=== PATIENT | female | born 1975 | race African-American/Black ===

== ENCOUNTER 2016-07-20 14:37 | Observation (INO) | payer OTHER ==
[~2016-07-20] VITALS: Ht 167.6 cm; Wt 130.8 kg
--- NOTE | ~2016-07-20 | EKG ---
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
[~2016-07-20 14:37] MED LIST: BACTRIM DS TAB1 EACH PO; DIFLUCAN150 M1 PO; GLUCOPHAGE XR500 MG PO; HYDROCHLOROTHIA25 M2 GT; HYDROCHLOROTHIA25 M2 PO; JANUMET 50-5001 EACH PO; LABETALOL HCL200 MG PO; LANTUS100 UNIT/M SUBQ; LASIX 40 MG TAB40 MG GT; LOPRESSOR25 PO; METOPROLOL TART25 MG PO; MONISTAT 11 EACH VG; NOHOMEMEDICATIONS; NORCO 5-325 TA1 EACH PO; NORVASC10 MG PO; POTASSIUM20 PO; PRINIVIL20 MG PO; PRINIVIL40 MG PO; TRAMADOL 50 MG50 MG PO; VICTOZA0.6 MG/0.1 SUBQ; VITAMIN D32000 UNIT PO; ZOFRAN ODT4 MG PO
[2016-07-20 14:38] VITALS: BP 178/108
[2016-07-20] MEDS ORDERED: AMLODIPINE BESY10 MG PO (14:42)
[2016-07-20 15:05] LABS: ABSOLUTE NEUTROPHILS 3.2 thou/uL (1.4-8.2); BASOPHILS 0.9 % (0.0-2.0); EOSINOPHILS 2.8 % (0.0-3.0); HEMATOCRIT 37.3 % (37.0-47.0); HEMOGLOBIN 12.5 gm/dL (12.0-15.0); MCH 28.4 pg (26.0-34.0); MCHC 33.6 % (28.0-37.0); MCV 84.4 fL (80.0-100.0); MONOCYTES 11.4 % (1.0-8.0); PLATELET COUNT 269 thou/uL (150-400); POLYS 46.9 % (36.0-66.0); RBC 4.42 mil/uL (4.20-5.00); RDW 16.5 % (10.5-14.5); WBC 6.9 thou/uL (4.0-11.0)
[2016-07-20 15:06] LABS: MANUAL DIFF NO
[2016-07-20 15:13] LABS: CALCIUM 9.4 mg/dL (8.5-10.1); CREATININE 0.9 mg/dL (0.6-1.3); POTASSIUM 3.4 mmol/L (3.5-5.1)
[2016-07-20 15:19] LABS: ALBUMIN 3.3 g/dL (3.4-5.0); TOTAL BILIRUBIN 0.2 mg/dL (<0.1-1.0); TOTAL PROTEIN 8.1 g/dL (6.4-8.2); URIC ACID* 4.8 mg/dL (2.6-7.2)
[2016-07-20 15:27] LABS: URINE BILIRUBIN NEGATIVE (Negative); URINE BLOOD TRACE (Negative); URINE COLOR YELLOW; URINE GLUCOSE-RANDOM* NEGATIVE (Negative); URINE KETONES NEGATIVE (Negative); URINE LEUKOCYTES-REFLEX NEGATIVE (Negative); URINE PROTEIN (DIPSTICK) 2+ (Negative); URINE SPECIFIC GRAVITY >= 1.030 (1.003-1.035); URINE UROBILINOGEN 0.2 E.U./dl (0.2-1.0)
[2016-07-20 15:42] LABS: SQUAMOUS >10 Many /LPF (0-3)
[2016-07-20 15:43] LABS: CASTS None Seen /LPF (None Seen); CRYSTALS None Seen /LPF (None Seen); URINE RBC None Seen /HPF (0-2); URINE WBC-REFLEX 0-5 Rare /HPF (0-5)
[2016-07-20 18:29] VITALS: BP 165/89
[2016-07-20] MEDS ORDERED: IRON325 PO (19:43)
[2016-07-20] MEDS ORDERED: LASIX 40 MG TAB40 M2 PO (19:44)
[2016-07-20 21:02] VITALS: BP 146/80
[2016-07-20] MEDS ORDERED: ACCUNEB SO1.25 MG/1 INH (22:29)
[2016-07-20] MEDS ORDERED: FLONASE 0.05%50 MCG NASAL (22:31)
[2016-07-20] MEDS ORDERED: ALBUTEROL2.5 MG/0.5 INH (22:32)
[2016-07-20] MEDS ORDERED: COZAAR 25 MG TA25 M2 PO (22:34)
[2016-07-20] MEDS ORDERED: LEVAQUIN 500 M500 M2 PO (22:35)
[2016-07-20] MEDS ORDERED: PREDNISOLONE 5 M5 M1 PO (22:38)
[2016-07-20] MEDS ORDERED: TRAMADOL 50 MG50 MG PO (22:39)
[2016-07-20] MEDS ORDERED: ADVAIR HFA 230M12 GM INH (22:41)
[2016-07-20 23:44] VITALS: BP 157/105
[2016-07-21] VITALS (8 sets, daily range): BP systolic 122–186; BP diastolic 87–120
[2016-07-21 03:52] LABS: CALCIUM 8.6 mg/dL (8.5-10.1); CREATININE 0.7 mg/dL (0.6-1.3); POTASSIUM 3.5 mmol/L (3.5-5.1)
[2016-07-21] MEDS ORDERED: NIFEDIPINE ER60 M1 PO (09:31)
== END 2016-07-21 15:17 | disposition home or self-care (01) ==
LOC: ER 14:37 → EROBS 16:45 → 2N 19:29
PROVIDERS: Emergency Medicine; Nurse Practitioner
DX: R51 Headache (principal); I10 Essential (primary) hypertension; E11.9 Type 2 diabetes mellitus without complications; J06.9 Acute upper respiratory infection, unspecified; Z79.899 Other long term (current) drug therapy; F17.210 Nicotine dependence, cigarettes, uncomplicated

== ENCOUNTER → 2016-10-05 | Outpatient (CLI) | payer OTHER ==
[~2016-10-05] MED LIST changes: +ACCUNEB SO1.25 MG/1 INH; +ADVAIR HFA 230M12 GM INH; +ALBUTEROL2.5 MG/0.5 INH; +AMLODIPINE BESY10 MG PO; +COZAAR 25 MG TA25 M2 PO; +FLONASE 0.05%50 MCG NASAL; +IRON325 PO; +LASIX 40 MG TAB40 M2 PO; +LEVAQUIN 500 M500 M2 PO; +NIFEDIPINE ER60 M1 PO; +PREDNISOLONE 5 M5 M1 PO
== END ==
LOC: RAD 02:58
DX: R05 Cough (principal)

== ENCOUNTER 2018-05-20 23:29 | Emergency (ER) | payer OTHER ==
[~2018-05-20] VITALS: Ht 170.2 cm; Wt 131.1 kg
[~2018-05-20 23:29] MED LIST changes: +HYDROCHLOROTHIA25 M1 PO; +JANUVIA100 MG PO; +LISINOPRIL20 MG PO
[2018-05-20] MEDS ORDERED: LOPRESSOR50 PO (23:54)
[2018-05-20] MEDS ORDERED: TRULICITY1.5 MG/0.5 (23:54)
[2018-05-21] MEDS ORDERED: ALEVE220 MG PO (00:59)
[2018-05-21 01:26] VITALS: BP 191/101
== END 2018-05-21 01:27 | disposition home or self-care (01) ==
LOC: ER 23:29
DX: M25.561 Pain in right knee (principal); F17.210 Nicotine dependence, cigarettes, uncomplicated; I10 Essential (primary) hypertension; E11.9 Type 2 diabetes mellitus without complications; E28.2 Polycystic ovarian syndrome; Z98.890 Other specified postprocedural states

== ENCOUNTER 2018-06-13 19:23 | Emergency (ER) | payer OTHER ==
[~2018-06-13] VITALS: Ht 167.6 cm; Wt 133.4 kg
[~2018-06-13 19:23] MED LIST changes: +ALEVE220 MG PO; +LOPRESSOR50 PO; +TRULICITY1.5 MG/0.5
[2018-06-13] MEDS ORDERED: LISINOPRIL5 MG PO (19:49)
[2018-06-13] MEDS ORDERED: NORCO 5-325 TA1 EACH PO (20:35)
[2018-06-13 20:48] VITALS: BP 193/101
== END 2018-06-13 20:48 | disposition home or self-care (01) ==
LOC: ER 19:23
DX: S83.8X1A Sprain of other specified parts of right knee, initial encounter (principal); S93.491A Sprain of other ligament of right ankle, initial encounter; F17.210 Nicotine dependence, cigarettes, uncomplicated; I10 Essential (primary) hypertension; E11.9 Type 2 diabetes mellitus without complications; E28.2 Polycystic ovarian syndrome; Z98.890 Other specified postprocedural states; X50.1XXA Overexertion from prolonged static or awkward postures, initial encounter; Y92.89 Other specified places as the place of occurrence of the external cause; Y93.89 Activity, other specified; Y99.8 Other external cause status

== ENCOUNTER 2018-08-21 21:57 | Emergency (ER) | payer OTHER ==
[~2018-08-21] VITALS: Ht 167.6 cm; Wt 135.2 kg
[~2018-08-21 21:57] MED LIST changes: +LISINOPRIL5 MG PO
[2018-08-21] MEDS ORDERED: AMLODIPINE BESY10 MG PO (22:05)
[2018-08-21] MEDS ORDERED: ATIVAN1 MG PO (22:06)
[2018-08-21] MEDS ORDERED: ESCITALOPRAM OX10 MG PO (22:06)
[2018-08-21 22:57] LABS: BASOPHILS 0.8 % (0.0-2.0); EOSINOPHILS 2.9 % (0.0-3.0); HEMOGLOBIN 13.8 gm/dL (12.0-15.0); LYMPHOCYTES 32.3 % (24.0-44.0); MCH 29.6 pg (26.0-34.0); MCHC 34.5 g/dL (28.0-37.0); MCV 85.8 fL (80.0-100.0); MONOCYTES 9.8 % (1.0-8.0); PLATELET COUNT 200 thou/uL (150-400); POLYS 54.2 % (36.0-66.0); RBC 4.66 mil/uL (4.20-5.00); RDW 14.5 % (10.5-14.5); WBC 7.4 thou/uL (4.0-11.0)
[2018-08-21 23:03] LABS: CALCIUM 9.4 mg/dL (8.5-10.1); CREATININE 1.1 mg/dL (0.6-1.0)
[2018-08-21 23:09] LABS: ALBUMIN 3.5 g/dL (3.4-5.0); TOTAL BILIRUBIN 0.3 mg/dL (<0.1-1.0); TOTAL PROTEIN 7.9 g/dL (6.4-8.2)
[2018-08-22] MEDS ORDERED: AZITHROMYCIN 2250 MG PO (00:03)
[2018-08-22] MEDS ORDERED: POTASSIUM20 PO (00:03)
[2018-08-22 00:13] VITALS: BP 184/100
== END 2018-08-22 00:13 | disposition home or self-care (01) ==
LOC: ER 21:57
PROVIDERS: Emergency Medicine
DX: J11.1 Influenza due to unidentified influenza virus with other respiratory manifestations (principal); E87.6 Hypokalemia; I10 Essential (primary) hypertension; E11.9 Type 2 diabetes mellitus without complications; F17.210 Nicotine dependence, cigarettes, uncomplicated; Z98.890 Other specified postprocedural states

== ENCOUNTER 2018-09-11 21:38 | Emergency (ER) | payer OTHER ==
[~2018-09-11] VITALS: Ht 167.6 cm; Wt 137.4 kg
[~2018-09-11 21:38] MED LIST changes: +ATIVAN1 MG PO; +AZITHROMYCIN 2250 MG PO; +ESCITALOPRAM OX10 MG PO
[2018-09-11] MEDS ORDERED: BYSTOLIC 5 MG5 MG PO (21:56)
[2018-09-11 23:46] LABS: ABSOLUTE NEUTROPHILS 6.7 thou/uL (1.4-8.2); BASOPHILS 0.9 % (0.0-2.0); EOSINOPHILS 2.7 % (0.0-3.0); HEMOGLOBIN 12.9 gm/dL (12.0-15.0); LYMPHOCYTES 36.5 % (24.0-44.0); MCH 28.9 pg (26.0-34.0); MCV 87.6 fL (80.0-100.0); MONOCYTES 5.9 % (1.0-8.0); PLATELET COUNT 231 thou/uL (150-400); RBC 4.45 mil/uL (4.20-5.00); RDW 14.6 % (10.5-14.5); WBC 12.3 thou/uL (4.0-11.0)
[2018-09-11 23:48] LABS: CALCIUM 9.2 mg/dL (8.5-10.1); POTASSIUM 3.5 mmol/L (3.5-5.1)
[2018-09-11 23:54] LABS: ALBUMIN 3.3 g/dL (3.4-5.0); TOTAL BILIRUBIN 0.3 mg/dL (<0.1-1.0); TOTAL PROTEIN 7.5 g/dL (6.4-8.2)
[2018-09-12] VITALS: BP 173/93
[2018-09-12] MEDS ORDERED: ZOFRAN ODT4 MG DISSOLVE (00:37)
[2018-09-12] MEDS ORDERED: NAPROSYN500 MG PO (00:37)
[2018-09-12] MEDS ORDERED: NORCO 5-325 TA1 EACH PO (00:37)
== END 2018-09-12 01:09 | disposition home or self-care (01) ==
LOC: ER 21:38
PROVIDERS: Emergency Medicine
DX: M17.12 Unilateral primary osteoarthritis, left knee (principal); E11.9 Type 2 diabetes mellitus without complications; M25.462 Effusion, left knee; R11.2 Nausea with vomiting, unspecified; R19.7 Diarrhea, unspecified; I10 Essential (primary) hypertension; E28.2 Polycystic ovarian syndrome; F17.210 Nicotine dependence, cigarettes, uncomplicated; Z98.890 Other specified postprocedural states

== ENCOUNTER 2018-09-15 15:58 | Emergency (ER) | payer OTHER ==
[~2018-09-15] VITALS: Ht 167.6 cm; Wt 138.8 kg
[~2018-09-15 15:58] MED LIST changes: +BYSTOLIC 5 MG5 MG PO; +NAPROSYN500 MG PO; +ZOFRAN ODT4 MG DISSOLVE
[2018-09-15 18:12] VITALS: BP 169/81
== END 2018-09-15 18:19 | disposition home or self-care (01) ==
LOC: ER 15:58
DX: M71.22 Synovial cyst of popliteal space [Baker], left knee (principal); M25.462 Effusion, left knee; I10 Essential (primary) hypertension; E11.9 Type 2 diabetes mellitus without complications; Z98.890 Other specified postprocedural states

== ENCOUNTER 2018-11-17 16:10 | Inpatient (IN) | payer OTHER ==
[~2018-11-17] VITALS: Ht 167.6 cm; Wt 142.0 kg
[2018-11-17] VITALS (7 sets, daily range): BP systolic 132–211; BP diastolic 73–112
[2018-11-17 16:32] LABS: URINE BILIRUBIN NEGATIVE (Negative); URINE BLOOD NEGATIVE (Negative); URINE CLARITY CLEAR; URINE COLOR YELLOW; URINE GLUCOSE-RANDOM* 2+ (Negative); URINE KETONES TRACE (Negative); URINE LEUKOCYTES NEGATIVE (Negative); URINE NITRITE NEGATIVE (Negative); URINE PROTEIN (DIPSTICK) 1+ (Negative); URINE UROBILINOGEN 0.2 E.U./dl (0.2-1.0)
[2018-11-17 16:41] LABS: SQUAMOUS >10 Many /LPF (0-3); URINE RBC 0-2 Rare /HPF (0-2); URINE WBC 0-5 Rare /HPF (0-5)
[2018-11-17 16:42] LABS: BACTERIA 1-9 Few /HPF (None Seen); CASTS None Seen /LPF (None Seen); CRYSTALS None Seen /LPF (None Seen)
[2018-11-17 17:03] LABS: EOSINOPHILS 0.7 % (0.0-3.0); HEMATOCRIT 41.1 % (37.0-47.0); HEMOGLOBIN 13.7 gm/dL (12.0-15.0); LYMPHOCYTES 30.5 % (24.0-44.0); MCH 29.2 pg (26.0-34.0); MCHC 33.3 g/dL (28.0-37.0); MCV 87.7 fL (80.0-100.0); MONOCYTES 4.5 % (1.0-8.0); PLATELET COUNT 209 thou/uL (150-400); POLYS 63.3 % (36.0-66.0); RBC 4.69 mil/uL (4.20-5.00); RDW 15.3 % (10.5-14.5); WBC 9.5 thou/uL (4.0-11.0)
[2018-11-17 17:11] LABS: ANION GAP 6 mmol/L (7-16); BUN 15 mg/dL (7-18); CALCIUM 9.4 mg/dL (8.5-10.1); CHLORIDE 99 mmol/L (98-107); CO2 29 mmol/L (21-32); CREATININE 1.1 mg/dL (0.6-1.0); GLUCOSE 323 mg/dL (74-106); POTASSIUM 3.6 mmol/L (3.5-5.1); SODIUM 134 mmol/L (136-145)
[2018-11-17 17:19] LABS: TROPONIN-I <0.06 ng/mL (<0.06)
[2018-11-17 17:21] LABS: AMP/METHAMP Negative (Negative); BARBITURATES POSITIVE (Negative); BENZODIAZEPINES Negative (Negative); COCAINE Negative (Negative); METHADONE Negative (Negative); OPIATES Negative (Negative); PCP Negative (Negative)
[2018-11-18] VITALS (12 sets, daily range): BP systolic 129–176; BP diastolic 65–91
[2018-11-18 05:21] LABS: HEMATOCRIT 41.7 % (37.0-47.0); HEMOGLOBIN 13.7 gm/dL (12.0-15.0); MCV 88.1 fL (80.0-100.0); RBC 4.73 mil/uL (4.20-5.00); RDW 15.4 % (10.5-14.5); WBC 8.6 thou/uL (4.0-11.0)
[2018-11-18 05:33] LABS: CREATININE 0.9 mg/dL (0.6-1.0)
[2018-11-18 05:38] LABS: POTASSIUM 3.9 mmol/L (3.5-5.1)
--- NOTE | 2018-11-18 05:56 | NUR ---
PT. ARRIVED AT FLOOR AROUND 1930; AOX4; C/O HEADACHE; PRN PAIN MEDICATION GIVEN; SBP 164; PT. ON NICARDIPINE GTT AT 5MG/H; ABLE TO AMBULATE WITHOUT AIDS; THROUGH THE NIGHT IV GTT TITRATED ACCORDING TO SBP; AT 0400 PT. 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 REQUESTED C-PAP OFF; EDUCATED ABOUT THE IMPORTANCE OF WEARING IT; ST. UNDERSTANDING; ABLE TO REST THROUGH THE NIGHT WITH EYES CLOSED; ASSESSMENT CHARGED; FOLLOWING POC; WILL KEEP MONITORING; WILL PASS ON REPORT.
--- NOTE | 2018-11-18 10:29 | EKG ---
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: : 1975 Requested By: Ivana Hannah Order Number: [id number] MD: Osman Molina Measurements Intervals [place] Rate: 97 P: 47 NV: 158 QRS: 32 QRSD: 84 T: 143 QT: 384 QTc: 488 Interpretive Statements Sinus rhythm Poor R wave progression Nonspecific ST and T wave abnormality Compared to ECG 07/20/2016 14:54:16 Poor R wave progression is now present Electronically Signed On 11-18-2018 10:28:52 CDT by Osman Molina [email or web address] ��������������������������������������������� <ELECTRONICALLY SIGNED> ���������������������������������������� By: Osman Molina MD, [facility] ��������������������������������������������� 11/18/18 1028 1654 1654 Osman Molina MD, [facility] /EPI
[2018-11-18] MEDS ORDERED: BENICAR40 MG PO (15:28)
[2018-11-18] MEDS ORDERED: BYSTOLIC20 MG PO (15:28)
[2018-11-18] MEDS ORDERED: GLYBURIDE 5 MG T5 M1 PO (15:29)
[2018-11-18] MEDS ORDERED: METFORMIN HCL500 MG PO (15:29)
--- NOTE | 2018-11-18 16:38 | NUR ---
ASSUMED CARE AT SHIFT CHANGE, ALERT AND ORIENTED X4. C/O HEADACHE WHIC REOLVED WHEN PATIENT TOOL A NAP. BP 141/84 DR CHRISTINA NOTIFIED. DENIES ANY CP AFEBRILE AND SR ON THE MONITOR. DISCHARGE AND MEDICATION INSTRUCTIONS GIVEN, AND PATIENT VERBALIZED UNDERSTANDING. AND SHE IS DISCHARGING HOME.
== END 2018-11-18 17:45 | disposition home or self-care (01) | DRG 305 ==
LOC: ER 16:10 → EROBS 17:50 → 2N 18:29
PROVIDERS: Student in an Organized Health Care Education/Training Program; ADMIT Hospitalist
DX: I16.1 Hypertensive emergency (principal); Z68.43 Body mass index [BMI] 50.0-59.9, adult; I10 Essential (primary) hypertension; E11.65 Type 2 diabetes mellitus with hyperglycemia; E66.01 Morbid (severe) obesity due to excess calories; G47.33 Obstructive sleep apnea (adult) (pediatric); R20.2 Paresthesia of skin; F17.210 Nicotine dependence, cigarettes, uncomplicated; Z98.891 History of uterine scar from previous surgery; Z79.899 Other long term (current) drug therapy; Z91.040 Latex allergy status
CPT/HCPCS: 10194

== ENCOUNTER 2019-04-29 18:55 | Emergency (ER) | payer OTHER ==
[~2019-04-29] VITALS: Ht 170.2 cm; Wt 137.4 kg
[~2019-04-29 18:55] MED LIST changes: +BENICAR40 MG PO; +BYSTOLIC20 MG PO; +GLYBURIDE 5 MG T5 M1 PO; +METFORMIN HCL500 MG PO
[2019-04-29] MEDS ORDERED: TRANDATE 200 M200 M1 PO (19:11)
[2019-04-29] MEDS ORDERED: FLEXERIL PO (19:11)
[2019-04-29] MEDS ORDERED: CHLORTHALIDONE25 MG PO (19:12)
[2019-04-29] MEDS ORDERED: JARDIANCE10 MG PO (19:13)
[2019-04-29] MEDS ORDERED: LIPITOR 40 MG T40 M1 PO (19:13)
[2019-04-29] MEDS ORDERED: GLYBURIDE 5 MG T5 M1 PO (19:13)
[2019-04-29] MEDS ORDERED: MOBIC15 MG PO (19:40)
[2019-04-29 20:05] VITALS: BP 138/68
== END 2019-04-29 20:05 | disposition home or self-care (01) ==
LOC: ER 18:55
DX: G56.03 Carpal tunnel syndrome, bilateral upper limbs (principal); M70.842 Other soft tissue disorders related to use, overuse and pressure, left hand; M70.841 Other soft tissue disorders related to use, overuse and pressure, right hand; I10 Essential (primary) hypertension; E11.9 Type 2 diabetes mellitus without complications; E28.2 Polycystic ovarian syndrome; F17.210 Nicotine dependence, cigarettes, uncomplicated; Z98.890 Other specified postprocedural states; Z91.040 Latex allergy status; Y93.89 Activity, other specified

== ENCOUNTER 2019-06-28 22:40 | Emergency (ER) | payer OTHER ==
[~2019-06-28] VITALS: Ht 170.2 cm; Wt 131.1 kg
[~2019-06-28 22:40] MED LIST changes: +CHLORTHALIDONE25 MG PO; +FLEXERIL PO; +JARDIANCE10 MG PO; +LIPITOR 40 MG T40 M1 PO; +MOBIC15 MG PO; +TRANDATE 200 M200 M1 PO
[2019-06-28 23:20] LABS: URINE BILIRUBIN 1+ (Negative); URINE BLOOD NEGATIVE (Negative); URINE CLARITY CLEAR; URINE COLOR YELLOW; URINE GLUCOSE-RANDOM* NEGATIVE (Negative); URINE KETONES 1+ (Negative); URINE LEUKOCYTES-REFLEX TRACE (Negative); URINE NITRITE-REFLEX NEGATIVE (Negative); URINE PROTEIN (DIPSTICK) 1+ (Negative); URINE SPECIFIC GRAVITY 1.025 (1.005-1.035); URINE UROBILINOGEN 0.2 E.U./dl (0.2-1.0)
[2019-06-28 23:27] LABS: ICTOTEST (BILI CONFIRMATORY) Positive (Negative)
[2019-06-28 23:28] LABS: ABSOLUTE NEUTROPHILS 5.2 thou/uL (1.4-8.2); BASOPHILS 0.5 % (0.0-2.0); EOSINOPHILS 1.2 % (0.0-3.0); HEMATOCRIT 38.8 % (37.0-47.0); HEMOGLOBIN 12.7 gm/dL (12.0-15.0); LYMPHOCYTES 35.4 % (24.0-44.0); MCH 28.8 pg (26.0-34.0); MCHC 32.6 g/dL (28.0-37.0); MCV 88.2 fL (80.0-100.0); MONOCYTES 8.5 % (1.0-8.0); PLATELET COUNT 255 thou/uL (150-400); POLYS 54.4 % (36.0-66.0); RBC 4.41 mil/uL (4.20-5.00); RDW 15.4 % (10.5-14.5); WBC 9.7 thou/uL (4.0-11.0)
[2019-06-28] MEDS ORDERED: PROTONIX40 M2 PO (23:29)
[2019-06-28] MEDS ORDERED: LEVEMIR FL100 UNIT/2 SUBQ (23:33)
[2019-06-28 23:35] LABS: BACTERIA-REFLEX >30 Many /HPF (None Seen); CASTS None Seen /LPF (None Seen); CRYSTALS None Seen /LPF (None Seen); MUCUS 0-3 Light strn/LPF (None Seen); SQUAMOUS >10 Many /LPF (0-3); URINE RBC None Seen /HPF (0-2); URINE WBC-REFLEX 0-5 Rare /HPF (0-5)
[2019-06-28 23:53] LABS: ALBUMIN 3.6 g/dL (3.4-5.0); CALCIUM 9.4 mg/dL (8.5-10.1); CREATININE 1.1 mg/dL (0.6-1.0); DIRECT BILIRUBIN 0.1 mg/dL (<0.1-0.2); TOTAL BILIRUBIN 0.4 mg/dL (<0.1-1.0); TOTAL PROTEIN 8.6 g/dL (6.4-8.2)
[2019-06-28 23:54] LABS: POTASSIUM 2.9 mmol/L (3.5-5.1)
[2019-06-29] MEDS ORDERED: POTASSIUM20 PO (01:21)
[2019-06-29 01:44] VITALS: BP 153/73
== END 2019-06-29 01:50 | disposition home or self-care (01) ==
LOC: ER 22:40
PROVIDERS: Emergency Medicine
DX: E87.6 Hypokalemia (principal); R11.2 Nausea with vomiting, unspecified; E11.9 Type 2 diabetes mellitus without complications; I10 Essential (primary) hypertension; G47.30 Sleep apnea, unspecified; Z98.84 Bariatric surgery status; Z79.4 Long term (current) use of insulin; Z87.891 Personal history of nicotine dependence; Z91.040 Latex allergy status

== ENCOUNTER 2020-01-15 20:52 | Emergency (ER) | payer OTHER ==
[~2020-01-15] VITALS: Ht 170.2 cm; Wt 102.1 kg
[~2020-01-15 20:52] MED LIST changes: +LEVEMIR FL100 UNIT/2 SUBQ; +PROTONIX40 M2 PO
[2020-01-15 22:04] LABS: ABSOLUTE NEUTROPHILS 5.6 thou/uL (1.4-8.2); BASOPHILS 0.5 % (0.0-2.0); EOSINOPHILS 0.9 % (0.0-3.0); HEMATOCRIT 37.2 % (37.0-47.0); HEMOGLOBIN 12.4 gm/dL (12.0-15.0); LYMPHOCYTES 32.3 % (24.0-44.0); MCH 30.4 pg (26.0-34.0); MCHC 33.3 g/dL (28.0-37.0); MCV 91.1 fL (80.0-100.0); MONOCYTES 6.6 % (1.0-8.0); PLATELET COUNT 270 thou/uL (150-400); POLYS 59.7 % (36.0-66.0); RBC 4.09 mil/uL (4.20-5.00); RDW 15.2 % (10.5-14.5); WBC 9.4 thou/uL (4.0-11.0)
[2020-01-15] MEDS ORDERED: COZAAR 25 MG TA25 M2 PO (22:04)
[2020-01-15] MEDS ORDERED: LABETALOL HCL100 MG PO (22:04)
[2020-01-15 22:05] LABS: URINE BILIRUBIN NEGATIVE (Negative); URINE BLOOD 3+ (Negative); URINE CLARITY CLEAR; URINE COLOR YELLOW; URINE GLUCOSE-RANDOM* NEGATIVE (Negative); URINE KETONES NEGATIVE (Negative); URINE LEUKOCYTES-REFLEX NEGATIVE (Negative); URINE NITRITE-REFLEX NEGATIVE (Negative); URINE PROTEIN (DIPSTICK) NEGATIVE (Negative); URINE SPECIFIC GRAVITY >= 1.030 (1.005-1.035)
[2020-01-15 22:16] LABS: CALCIUM 8.6 mg/dL (8.5-10.1); CREATININE 1.1 mg/dL (0.6-1.0); POTASSIUM 3.3 mmol/L (3.5-5.1)
[2020-01-15 22:18] LABS: CASTS None Seen /LPF (None Seen); CRYSTALS None Seen /LPF (None Seen); SQUAMOUS 0-3 Few /LPF (0-3)
[2020-01-15 22:19] LABS: ALBUMIN 3.2 g/dL (3.4-5.0); BACTERIA-REFLEX 1-9 Few /HPF (None Seen); TOTAL BILIRUBIN 0.3 mg/dL (0.2-1.0); TOTAL PROTEIN 7.8 g/dL (6.4-8.2); URINE WBC-REFLEX None Seen /HPF (0-5)
[2020-01-16 00:27] VITALS: BP 186/104
--- NOTE | 2020-01-16 07:50 | EKG ---
[facility] [place] [address] ELECTROCARDIOGRAM REPORT Name: JESS LINDSEY Room #: [facility] [id number] Admission: 01/15/20 Attend Phys: Discharge: 01/16/20 Date of : 77 Report #: [id number] THIS REPORT FOR: cc: OBED - Suki family physician/PCP OBED - Suki family physician/PCP Osman Molina MD [facility] THIS REPORT FOR: //name// [facility] ED Test Date: 2020-01-15 Test Time: 21:11:04 Pat Name: JESS LINDSEY Department: Room: Gender: F Nude Model: VUMSKEENAN : 1975 Requested By: Magnus Yanez Order Number: [id number] MD: Osamn Molina Measurements Intervals [place] Rate: 80 P: 28 [place]: 152 QRS: 15 QRSD: 83 T: 21 QT: 389 QTc: 449 Interpretive Statements Sinus rhythm Nonspecific ST and T wave abnormality Compared to ECG 11/17/2018 16:54:55 Poor R-wave progression no longer present ST (T wave) deviation less prominent Electronically Signed On 01-16-2020 7:50:23 CDT by Osman Molina [email or web address] <ELECTRONICALLY SIGNED> By: Osman Molina MD, [facility] 01/16/20 0750 10 10 Osman Molina MD, [facility] /EPI
[2020-01-17] MEDS ORDERED: ZOFRAN ODT4 MG PO (02:43)
[2020-01-17] MEDS ORDERED: FIORINAL 50-321 EACH PO (02:43)
== END 2020-01-16 00:28 | disposition home or self-care (01) ==
LOC: ER 20:52
PROVIDERS: Emergency Medicine
DX: R51 Headache (principal); R11.2 Nausea with vomiting, unspecified; I10 Essential (primary) hypertension; E11.9 Type 2 diabetes mellitus without complications; Z79.899 Other long term (current) drug therapy; Z91.040 Latex allergy status; Z87.891 Personal history of nicotine dependence

== ENCOUNTER 2020-01-16 23:49 | Emergency (ER) | payer OTHER ==
[~2020-01-16] VITALS: Ht 170.2 cm; Wt 102.1 kg
--- NOTE | ~2020-01-16 | EMS ---
[place] [address] EMS Patient Care Report Name: JESS LINDSEY Room #: PRE MPortillo#: [id number] Admission: Attend Phys: Discharge: Date of : 77 Report #: [id number] THIS REPORT FOR: //name// Report Transmitted: 01/16/2020 23:49 EMS Care Summary [place], [place]/[facility] Incident [id number] @ 01/16/2020 23:09 Incident Location [address] [place] [address] Patient JESS LINDSEY Female, 44 Years 1975 Patient Address [address] [place] [address] Patient History Diabetes,Hypertension (HTN), Patient Allergies No known allergies,Latex allergy, Patient Medications Insulin, Glucophage, Amlodipine, Losartan, Labetalol, Chief Complaint hypertension headache Disposition Transported No Lights/[place] Dispatch Reason Headache Transported To [facility] Narrative 44 y/o female c/o headache and HTN Upon arrival the pt was on the phone using the bathroom before we left the scene. The pt came out of the bathroom and [place] [address] EMS Patient Care Report Name: JESS LINDSEY Room #: PRE PINEDA Aguila#: [id number] Admission: Attend Phys: Discharge: Date of : 77 Report #: [id number] assistance from fire personnel. The pt is c/o HTN and headache associated with the headache. The pt states her blood pressure has been messing up over the last 5 days. Today she was shopping at the store at 7 pm when she started to develop the headache. The pt state she took her Labatelol and it hasn't seemed to help her BP. The pt ambulated to the cot, placed herself in a position of comfort, secured to the cot, and loaded into the ambulance. VS were established. D-78. EXG was SR. The pt was transported to [place] with out incident or changes with the pt. The pt ambulated to the bathroom to give a urine sample in the ED. EMS returned to service. Initial Vitals @23:38P: 76,R: 16,BP: 198/99,Pain: 8/10,GCS: 15,Glucose: 78,SpO2: 100,Revised Trauma: 12, @23:43P: 78,R: 16,BP: 212/110,Pain: 8/10,GCS: 15,SpO2: 99,Revised Trauma: 12, Assessments @23:32MENTAL:Person Oriented,Time Oriented,Event Oriented,Place Oriented,SKIN:HEENT:Eyes: Left Pupil: 4-mm,Eyes: Right Pupil: 4-mm,Head/Face: No Abnormalities,Neck/Airway: No Abnormalities,LUNG SOUNDS:General: No Abnormalities,ABDOMEN:General: No Abnormalities,PELVIS//GI:No Abnormalities,EXTREMITIES:Capillary Refill: Right Upper: < 2 Sec,Capillary Refill: Left Upper: < 2 Sec,Left Arm: No Abnormalities,Right Arm: No Abnormalities,Left Leg: No Abnormalities,Right Leg: No Abnormalities,PULSE:Radial: 3+ Bounding,NEURO:No Abnormalities, Impression Headache Procedures @23:28ALS AssessmentResponse: UnchangedSucceeded@23:323-Lead ECGResponse: UnchangedSucceeded Timeline 23:03,Call Received 23:03,Dispatch Notified 23:09,Dispatched 23:10,En Route 23:14,On Scene 23:15,At Patient 23:28,ALS Assessment,Response: UnchangedSucceeded, 23:32,Depart Scene 23:32,3-Lead ECG,Response: UnchangedSucceeded, 23:38,BP: 198/99 M,PULSE: 77,RR: 16 R,SPO2: 100 Ox,ETCO2: ,B,PAIN: 8,GCS: 15, 23:43,BP: 212/110 M,PULSE: 78,RR: 16 R,SPO2: 99 Ox,ETCO2: ,BG: ,PAIN: 8,GCS: 15, [address] [address] EMS Patient Care Report Name: JESS LINDSEY Room #: PRE M.R.#: [id number] Admission: Attend Phys: Discharge: Date of : 77 Report #: [id number] 23:44,At Destination 23:57,Call Closed Disclaimer [email or web address] Copyright 2020 [email or web address] This EMS Care Summary contains data elements from the applicable legal record (which may be displayed differently). It is designed to provide pertinent information for the following purposes: continuity of care, clinical quality, and state data reporting. The complete legal record is available to ED staff and administrators of the receiving hospital in [employer]'s Patient Tracker. All data is provided "as is."
[~2020-01-16 23:49] MED LIST changes: +LABETALOL HCL100 MG PO
[2020-01-17 00:38] LABS: ABSOLUTE NEUTROPHILS 6.6 thou/uL (1.4-8.2); BASOPHILS 0.4 % (0.0-2.0); EOSINOPHILS 4.6 % (0.0-3.0); HEMATOCRIT 37.4 % (37.0-47.0); HEMOGLOBIN 12.3 gm/dL (12.0-15.0); LYMPHOCYTES 26.4 % (24.0-44.0); MCH 29.8 pg (26.0-34.0); MCHC 32.9 g/dL (28.0-37.0); MCV 90.7 fL (80.0-100.0); MONOCYTES 6.8 % (1.0-8.0); PLATELET COUNT 272 thou/uL (150-400); POLYS 61.8 % (36.0-66.0); RBC 4.12 mil/uL (4.20-5.00); RDW 15.6 % (10.5-14.5); WBC 10.7 thou/uL (4.0-11.0)
[2020-01-17 00:42] LABS: ANION GAP 8 mmol/L (7-16); BUN 17 mg/dL (7-18); CALCIUM 8.6 mg/dL (8.5-10.1); CHLORIDE 101 mmol/L (98-107); CO2 27 mmol/L (21-32); GLUCOSE 95 mg/dL (74-106); POTASSIUM 3.2 mmol/L (3.5-5.1); SODIUM 136 mmol/L (136-145)
[2020-01-17 00:52] LABS: ALBUMIN 3.5 g/dL (3.4-5.0); SGOT 25 U/L (15-37); SGPT 29 U/L (30-65); TOTAL BILIRUBIN 0.4 mg/dL (0.2-1.0); TOTAL PROTEIN 7.4 g/dL (6.4-8.2); TROPONIN-I <0.06 ng/mL (<0.06)
[2020-01-17] MEDS ORDERED: FIORINAL 50-321 EACH PO (02:43)
[2020-01-17] MEDS ORDERED: ZOFRAN ODT4 MG PO (02:43)
[2020-01-17 03:01] VITALS: BP 154/83
== END 2020-01-17 03:02 | disposition home or self-care (01) ==
LOC: ER 23:49
PROVIDERS: Emergency Medicine
DX: G43.909 Migraine, unspecified, not intractable, without status migrainosus (principal); I10 Essential (primary) hypertension; E11.9 Type 2 diabetes mellitus without complications; Z98.890 Other specified postprocedural states; Z98.84 Bariatric surgery status; Z79.899 Other long term (current) drug therapy; Z91.040 Latex allergy status; Z87.891 Personal history of nicotine dependence

== ENCOUNTER 2021-01-15 23:16 | Emergency (ER) | payer OTHER ==
[~2021-01-15] VITALS: Ht 170.2 cm; Wt 108.9 kg
[~2021-01-15 23:16] MED LIST changes: +FIORINAL 50-321 EACH PO
[2021-01-15 23:28] VITALS: BP 188/75
[2021-01-15] MEDS ORDERED: NIFEDIPINE20 MG PO (23:36)
[2021-01-15] MEDS ORDERED: LOSARTAN-HCTZ1 EAC3 PO (23:37)
[2021-01-15] MEDS ORDERED: NORVASC10 MG PO (23:37)
== END 2021-01-16 01:25 | disposition home or self-care (01) ==
LOC: ER 23:16
DX: M25.562 Pain in left knee (principal); I10 Essential (primary) hypertension; E11.9 Type 2 diabetes mellitus without complications; E28.2 Polycystic ovarian syndrome; Z79.899 Other long term (current) drug therapy; Z87.891 Personal history of nicotine dependence; Z88.1 Allergy status to other antibiotic agents; Z91.040 Latex allergy status; Z98.890 Other specified postprocedural states